=== PATIENT | male | born 1970 | race Hispanic/Latino ===

== ENCOUNTER 2024-03-10 06:00 | Day surgery (SDC) | payer OTHER ==
[2024-03-10] MEDS ORDERED: PROPOFOL 40 ML ONE (06:28)
[2024-03-10] MEDS ORDERED: Lidocaine 2% PF 5 ML VIAL ONE (06:28)
[2024-03-10] MEDS ORDERED: PROPOFOL 20 ML ONE ×2 (07:38→07:52)
== END 2024-03-10 08:48 | disposition home or self-care (01) ==
LOC: CSHSDC 06:00
PROVIDERS: ATTEND Surgery
PROC: 0DBE8ZX Excision of Large Intestine, Via Natural or Artificial Opening Endoscopic, Diagnostic (ICD-10-PCS; principal; 2024-03-10)
DX: Z12.11 Encounter for screening for malignant neoplasm of colon (principal); K63.5 Polyp of colon; I10 Essential (primary) hypertension; K57.30 Diverticulosis of large intestine without perforation or abscess without bleeding; J30.2 Other seasonal allergic rhinitis; Z87.891 Personal history of nicotine dependence
CPT/HCPCS: 88305; J2704